=== PATIENT | male | born 1945 | race Caucasian/White ===

== ENCOUNTER 2016-09-29 17:01 | Inpatient (IN) | payer OTHER ==
--- NOTE | ~2016-09-29 | HP ---
History And Physical [id number] [place]. [address] NAME: LUIS M INFANTE : 47 STATUS : ADM IN [facility]#: [id number] AGE: 70 ADM/REG DATE : 09/29/16 MR#: [id number] REPORT SERV DATE: 09/30/16 DICTATED BY: STEVEN LAMBERT DATE: 09/29/16 REPORT STATUS : Draft TRANSCRIBED BY: LEONARDO DATE: 09/29/16 DATE OF ADMISSION: 09/29/2016 CHIEF COMPLAINT: Chest pain. 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 Last dose of chemotherapy was two days ago. The patient reported that after chemotherapy he was doing relatively fine though has some fatigue but there was no nausea, no vomiting. However, he reports some sudden onset of retrosternal chest pain, which was dull in nature, radiating to his jaw and left hand. He said the chest pain was 8/10 in intensity. There was associated shortness of breath. He said the chest pain lasted for about 30 minutes, subsequently relieved with rest, however, several hours later, the chest pain reoccurred, became more severe and intense. There was associated shortness of breath, palpitation, and diaphoresis. He denies any presyncopal or syncopal episode. He denies any cough. No chills. No bilateral lower extremity swelling, orthopnea, or PND. Given worsening chest pain, the patient decided to come to the ER for further evaluation. In the ER, the patient was found to have significantly elevated troponin with T-wave inversion in V4 and V5. A diagnosis of NSTEMI was made in the ER. Cardiology was consulted in the ER and recommended to start medical therapy for NSTEMI with heparin drip, aspirin, and beta becca. Given patient's other comorbidities including stage IV metastatic lung cancer, Cardiology team recommended the patient to be admitted to the Hospitalist Service for further evaluation. PAST MEDICAL HISTORY: 1. Adenocarcinoma of the lung diagnosed in 06/27/2016, currently stage IV, on chemotherapy. 2. Pneumothorax related to CT-guided biopsy. 3. COPD. 4. Hyperlipidemia. FAMILY HISTORY: Denies history of cancer, coronary artery disease, CVA, stroke, diabetes, or hypertension in the family. SOCIAL HISTORY: Denies smoking cigarettes, drinking alcohol, or illicit drug use. ALLERGIES: NO KNOWN DRUG ALLERGIES. MEDICATION: 1. Aspirin 81 mg p.o. daily. 2. Zocor 40 mg p.o. at bedtime. 3. Zanaflex 4 mg p.o. at bedtime. 4. Benadryl 25 mg p.o. at bedtime. 5. Folic acid 1 mg p.o. daily. History And Physical [address] [address] NAME: LUIS M INFANTE : 47 STATUS : ADM IN [facility]#: [id number] AGE: 70 ADM/REG DATE : 09/29/16 MR#: [id number] REPORT SERV DATE: 09/30/16 DICTATED BY: STEVEN LAMBERT DATE: 09/29/16 REPORT STATUS : Draft TRANSCRIBED BY: LEONARDO DATE: 09/29/16 6. Dexamethasone 4 mg p.o. at 7 a.m. and 3 p.m. daily. 7. Percocet 7.5/325 mg p.o. every eight hours. 8. Remeron 50 mg p.o. at bedtime. 9. Colace 100 mg p.o. daily. 10.Vitamin C 500 mg p.o. daily. 11.Paraplatin chemotherapy. 12.Palonosetron 1 IV with chemotherapy. 13.Cyanocobalamin 100 mcg daily. REVIEW OF SYSTEMS: A 12-point review of systems performed essentially negative. Positive findings as per HPI. PHYSICAL EXAMINATION: VITAL SIGNS: Blood pressure 124/84, temperature 97.2, pulse 75 beats per minute, and saturating 100% on room air. GENERAL: Not in any acute distress. Lying comfortably in bed. HEENT: Normocephalic, atraumatic. Extraocular muscles intact. Pupils equal, round, and reactive. NECK: Supple. No JVD. CHEST: Equal expansion, nontender. LUNGS: Bibasilar crackles and rhonchi. No wheezes. CARDIOVASCULAR: Regular rate and rhythm. S1 and S2. No murmurs. ABDOMEN: Bowel sounds normoactive. Nontender. No palpably enlarged organomegaly. LOWER EXTREMITIES: No pedal edema. . LABORATORY DATA: Chemistry: Sodium 136, potassium 4.2, chloride 105, bicarb 22, BUN 19, creatinine 0.86, GFR 88, calcium 7.4, glucose 167, magnesium 2.3, troponin 4.71. Total protein, albumin, direct bilirubin, indirect bilirubin, total bilirubin, alkaline phosphatase, ALT, and AST pending. Hematology: WBC 22.5, RBC 3.10, hemoglobin 9.8, hematocrit 29.3, MCV 94.5, and platelet 287. INR 1.1. PT 14.1. BNP 394.6. CT of the brain, [id number] atrial fib. There is no evidence of bone metastasis. There is no evidence of any parenchymal metastasis. Chest x-ray, PA and lateral. Impression, worsening interstitial pattern reminiscent of pulmonary fibrosis, although this may represent failure superimposed or an element of pulmonary fibrosis, lymphangitic spread of cancer should also be considered now because of history of lung cancer. In summary, this is a 70-year-old male with medical history significant for adenocarcinoma of the lung stage IV, who presented to the hospital with anginal pectoris found to have significant elevated troponin concerning for NSTEMI. NSTEMI. Currently, the patient will continue heparin drip, aspirin, beta becca, and nitroglycerin patch. Cardiology has been consulted and discussed with family. The patient will likely undergo a cardiac catheterization in the morning. History And Physical [address] [address] NAME: LUIS M INFANTE : 47 STATUS : ADM IN [facility]#: [id number] AGE: 70 ADM/REG DATE : 09/29/16 MR#: [id number] REPORT SERV DATE: 09/30/16 DICTATED BY: STEVEN LAMBERT DATE: 09/29/16 REPORT STATUS : Draft TRANSCRIBED BY: MODL DATE: 09/29/16 Leukocytosis. WBC of 20.3, likely related to dexamethasone. No evidence of systemic inflammatory response nor any evidence of obvious source of infection at this time. We will continue to monitor. Adenocarcinoma of the lung, stage IV, currently on chemotherapy. The patient's primary oncologist will be notified about patient's admission. Admission disposition, cardiac tele monitoring. Admission status, inpatient. Admission code status, full code per family wishes. DVT prophylaxis, contraindicated. The patient is currently anticoagulated with heparin drip. IOO/MODL Steven Lambert MD / [id number] CC: MD Vin Escobar MD
--- NOTE | ~2016-09-29 | DS ---
Discharge Summary [facility] [address] [place]. [address] NAME: LUIS M INFANTE : 47 STATUS : DIS IN PAT#: [id number] AGE: 70 ADM/REG DATE : 09/29/16 MR#: [id number] REPORT SERV DATE: 10/04/16 DICTATED BY: BRI ALVES II DATE: 10/03/16 REPORT STATUS : Draft TRANSCRIBED BY: MODL DATE: 10/03/16 ADMISSION DATE: 09/29/2016 DISCHARGE DATE: 10/03/2016 DISCHARGE DIAGNOSES: 1. Orh-SA-jtihcofdg myocardial infarction. 2. Multivessel coronary artery disease. 3. Stage IV lung cancer followed by Dr. Salazar. 4. Likely reactive leukocytosis. 5. Chronic obstructive pulmonary disease. 6. Non-sustained ventricular tachycardia. 7. Acute hypoxic respiratory failure. 8. History of hyperlipidemia. CONSULTS: 1. Dioni Dorsey M.D., and Heike Potts M.D., with Cardiology. 2. Joe Khan M.D., with Oncology. BRIEF HISTORY OF PRESENT ILLNESS: The patient is a 70-year-old male who presented to [facility] due to chest pain and subsequently found to have [id number] DE. For detailed history and physical examination, please see Dr. Jaimes's note from 09/29/2016. HOSPITAL COURSE: On admission, the patient had troponin of 4.12, BNP of 394. His EKG was fairly unremarkable with no ST changes and his chest pain resolved with nitro patch. He was placed on a heparin drip and Cardiology was consulted. An echocardiogram was done which showed preserved EF of 60%. No abnormalities. The patient subsequently underwent left heart catheterization which showed left main and three-vessel coronary artery disease. Left main with 50% stenosis. LAD with 90% long stenosis. Left circumflex with 50% stenosis in a totally occluded OM-2, RCA with 75% stenosis. Given the multivessel disease, the patient would need surgical correction. Dr. Khan was consulted for prognostic input and appropriateness for surgery. Given the patient's stage IV lung cancer and overall poor terminal operations supervisor prognosis, it was decided the patient was not a candidate for surgical intervention. His troponin trended down with medical management and his chest pain resolved. The patient was started on Plavix, metoprolol, simvastatin, and Imdur. At this point, the patient is otherwise stable. His chest x-ray showed worsening interstitial pattern reminiscent of pulmonary fibrosis although may represent failure, superimposed on an element of pulmonary fibrosis, lymphangitic spread of cancer should also be considered now because of history of lung cancer. The patient did qualify for home O2 but stable on 2 L nasal cannula. He had a brief 6 run beat of nonsustained ventricular tachycardia, but no further runs. On admission, he had a white count of 20 which trended down without antibiotics very quickly down to 9, likely reactive in the setting of acute NSTEMI. At this point, the patient is stable for discharge. DISCHARGE MEDICATIONS: 1. Aspirin 81 mg p.o. daily. 2. Colace 100 mg p.o. daily. Discharge Summary [address] [address] NAME: LUIS M INFANTE : 47 STATUS : DIS IN PAT#: [id number] AGE: 70 ADM/REG DATE : 09/29/16 MR#: [id number] REPORT SERV DATE: 10/04/16 DICTATED BY: BRI ALVES II DATE: 10/03/16 REPORT STATUS : Draft TRANSCRIBED BY: LEONARDO DATE: 10/03/16 3. Folic acid 1 mg p.o. daily. 4. Remeron 15 mg p.o. at bedtime. 5. Lopressor 12.5 mg p.o. b.i.d. 6. Simvastatin 40 mg p.o. at bedtime. 7. Zanaflex 4 mg p.o. at bedtime. 8. Benadryl p.r.n. 9. Decadron p.r.n. chemo. 10.Percocet p.r.n. pain. 11.Vitamin C 1000 mg p.o. daily. 12.Vitamin B12 IM q.30 days. 13.Imdur 30 mg ER p.o. daily. 14.Plavix 75 mg p.o. daily. DISCHARGE INSTRUCTIONS: The patient will follow with Dr. Salazar 10/[address] scan scheduled 10/17. GUICHO/LEONARDO Bri Alves II, MD / [id number] CC: MD Vin Lindo II, MD
--- NOTE | ~2016-09-29 | CN ---
Consultation Report [facility] [address] [place]. [address] NAME: LUIS M INFANTE : 47 STATUS : ADM IN PAT#: [id number] AGE: 70 ADM/REG DATE : 09/29/16 MR#: [id number] REPORT SERV DATE: 09/29/16 DICTATED BY: THI FONSECA DATE: 09/29/16 REPORT STATUS : Draft TRANSCRIBED BY: MODZoey DATE: 09/29/16 CARDIOLOGY CONSULTATION DATE OF CONSULTATION: REASON FOR REFERRAL: [id number]-[id number] [place]. HISTORY OF PRESENT ILLNESS: This is a pleasant 70 years old white gentleman with stage IV lung cancer, who is followed closely by Dr. Salazar. He is actively treated with chemotherapy reportedly fourth cycle now. He was diagnosed in 06/2016 and now has evidence of metastatic disease in the bones. He recently had an MRI of his chest on 09/25, which revealed extensive thoracic bone metastases. His MRI of the brain was negative for metastases in June and the CT of the brain in the emergency room does not show any metastatic disease. He has a history of hypertension, hyperlipidemia, but no history of smoking or diabetes. He lives independently. The patient reportedly has been complaining of poorly defined substernal chest burning sensation, both with exertion and at rest on and off over the last three to four days. He also has some worsening dyspnea on exertion and with activity. He has chronic dyspnea on exertion, but denies paroxysmal nocturnal dyspnea or resting shortness of breath. He denied lower extremity edema, syncope, or palpitations. He presented to the emergency room and was found to have elevated troponin up to 4.12, which has increased to 4.7 within a couple of hours. He got some ST-depression in anterolateral leads. He also has some leukocytosis 20,000, which may be due to the Decadron that he is using. I had a long discussion about situation with Dr. Queen. I was concerned about his metastatic disease and able to be the best approach to treat his acute coronary syndrome, but Dr. Queen talked to Dr. Salazar, who is the treating oncologist who reportedly agreed on coronary arteriogram and anticoagulation. CT of the brain was again negative for bleeding. The patient is currently comfortable. He was started on intravenous heparin and received aspirin. He denied prior history of chest pain. He wants to have everything done including a coronary arteriogram. Risks and benefits were explained to the patient. He wants to proceed. The rest of review of systems negative. PAST MEDICAL HISTORY: 1. Stage IV lung cancer diagnosed in 06/2016, currently undergoing chemotherapy. 2. Extensive thoracic bone metastatic disease by MRI in 09/2016. 3. Psoriasis. 4. Anxiety and depression. 5. Hypertension. 6. Hyperlipidemia. 7. Dyspnea on exertion, multifactorial in etiology. ALLERGIES: NO KNOWN DRUG ALLERGIES. Consultation Report [address] [address] NAME: LUIS M INFANTE : 47 STATUS : ADM IN [facility]#: [id number] AGE: 70 ADM/REG DATE : 09/29/16 MR#: [id number] REPORT SERV DATE: 09/29/16 DICTATED BY: THI FONSECA DATE: 09/29/16 REPORT STATUS : Draft TRANSCRIBED BY: LEONARDO DATE: 09/29/16 SOCIAL HISTORY: Patient denies smoking. He previously worked in the [employer]. He is walking without any support. He is . His daughter is on the side of his bed and has good family support. HOME MEDICATIONS: Aspirin 81 mg once a day, carboplatin, Xgeva injection, Decadron, Remeron 15 mg once a day, Percocet, and Zocor unknown dose once a day. PHYSICAL EXAMINATION: GEN - No acute distress. Elderly, chronically ill-looking gentleman. VITAL SIGNS: Blood pressure 155/56, heart rate 84 and regular. HEENT - Pupils reactive to light and accommodation. Moist mucosa membrane. NECK: No JVD. Normal carotid upstroke. No carotid bruits. LUNGS: Decreased breath sounds throughout, but with some occasional wheezing, but no crackles. COR: Normal S1, S2. No S3 or S4. No significant rub or murmurs. ABD: Distended, nontender. EXT: Lower extremity decreased pedal pulses bilaterally, but no edema. SKIN: Warm with normal turgor. MS - No kyphosis. NEURO/PSY - Alert and oriented. Nonfocal. Flat affect. DATA: Hemoglobin 9.8, leukocytosis 20,000, creatinine 0.8, nonfasting glucose 169, troponin 4.12 increasing to 4.7, brain natriuretic peptide 384. CT of the brain, no metastases. No bleeding. Electrocardiogram revealed normal sinus rhythm, 84 beats per minute with 0.[address]-depression in anterolateral leads. Nonspecific T-wave changes. Chest x-ray is pending. ASSESSMENT AND PLAN: 1. Acute coronary syndrome. 2. Stage IV lung cancer with metastases to the bone. As noted above, I had a long discussion with ER physician who discussed the situation with the treating oncologist, who agrees on anticoagulation and proceeding with coronary arteriogram. The patient and his family members agree with the risks and benefits. I expressed my skepticism that if there is a multivessel disease, we may consider treating medically while he may not be a good candidate for open heart surgery, but then we will proceed with coronary arteriogram tomorrow and possible PCI. We will also plan for echocardiogram. We will continue aspirin, statin. We will start beta becca, and plan for echocardiogram tomorrow also. Patient wants to be full code. MARTY/LEONARDO Thi Fonseca M.D. Consultation Report [address] [address] NAME: LUIS M INFANTE : 47 STATUS : ADM IN [facility]#: [id number] AGE: 70 ADM/REG DATE : 09/29/16 MR#: [id number] REPORT SERV DATE: 09/29/16 DICTATED BY: THI FONSECA DATE: 09/29/16 REPORT STATUS : Draft TRANSCRIBED BY: LEONARDO DATE: 09/29/16 / [id number] CC: MD Vin Escobar MD
[~2016-09-29 17:01] MED LIST: CLARIT10 PO; CYANO1000T PO; DSS PO; HALF81 PO; IRON PO; VITAMIN D1000 UNI1 PO; ZANAFLEX 4 MG TA4 MG PO; ZOCOR40 PO
[2016-09-29 17:05] LABS: CK-MB 13.1 NG/ML
[2016-09-29 17:11] LABS: CKMB INDEX (NOT ORD) 5.7
[2016-09-29 17:12] LABS: TROPONIN I 4.12 NG/ML (<0.05)
[2016-09-29 17:33] LABS: BASOPHILS 0 %; BASOPHILS ABSOLUTE 0.01 10/3/uL (0.0-0.16); EOSINOPHILS 0 %; HEMATOCRIT 29.3 % (40.0-51.0); HEMOGLOBIN 9.8 g/dL (13.6-17.8); IMMATURE GRANULOCYTES 0.6 %; IMMATURE GRANULOCYTES ABSOLUTE 0.13 10/3/uL (0.0-0.11); LYMPHOCYTES 6.1 %; LYMPHOCYTES ABSOLUTE 1.25 10/3/uL (0.67-4.30); MANUAL DIFF NO %; MEAN CORPUS HGB CONC 33.4 g/dL (32.0-36.0); MEAN CORPUSCULAR HEMOGLOB 31.6 pg (26.0-34.0); MEAN CORPUSCULAR VOLUME 94.5 fL (80-100); MEAN PLATELET VOLUME 9.6 fL (9.2-13.0); MONOCYTES 9.9 %; MONOCYTES ABSOLUTE 2.02 10/3/uL (0.21-1.20); NEUTROPHILS 83.4 %; NEUTROPHILS ABSOLUTE 17.06 10/3/uL (2.02-8.40); PLATELET COUNT 287 10/3/uL (150-400); RBC DISTRIBUTION WIDTH 16.2 % (12.0-16.0); WHITE BLOOD CELLS 20.5 10/3/uL (4.5-10.5)
[2016-09-29 17:40] LABS: INTERNATIONAL NORMAL RATI 1.1 UNITS (-); PARTIAL THROMBO TIME 24.2 SEC (22.5-37.2); PROTIME (NOT ORD) 14.1 SEC (12.0-14.5)
[2016-09-29 17:52] LABS: BUN (BLOOD UREA NITROGEN) 19 MG/DL (6-23); CHLORIDE, SERUM 105 MMOL/L (96-112); CO2 (CARBON DIOXIDE) 22 MMOL/L (24-34); CREATININE 0.86 MG/DL (0.70-1.30); GFR AFRICAN AMERICAN 103 ML/MIN (>=60); GFR NON AFRICAN AMERICAN 88 ML/MIN (>=60); POTASSIUM, SERUM 4.2 MMOL/L (3.5-5.3); SODIUM, SERUM 136 MMOL/L (135-148)
[2016-09-29 17:54] LABS: CALCIUM, SERUM 7.4 MG/DL (8.5-10.4); CHEST PAIN PROFILE TAT 0 Hrs 27 Mins; GLUCOSE, SERUM 167 MG/DL (60-99); TROPONIN I 4.74 NG/ML (<0.05)
[2016-09-29] MEDS ORDERED: HALF81 PO (18:43)
[2016-09-29] MEDS ORDERED: ZOCOR40 PO (18:43)
[2016-09-29] MEDS ORDERED: ZANAFLEX 4 MG TA4 MG PO (18:44)
[2016-09-29] MEDS ORDERED: BEN25 PO (18:45)
[2016-09-29] MEDS ORDERED: FOLIC PO (18:46)
[2016-09-29] MEDS ORDERED: DEX4 PO (18:59)
[2016-09-29] MEDS ORDERED: PERCOCET 7.5/321 TAB PO (19:01)
[2016-09-29] MEDS ORDERED: REM15 PO (19:02)
[2016-09-29] MEDS ORDERED: VITC500 PO (19:03)
[2016-09-29] MEDS ORDERED: DSS PO (19:03)
[2016-09-29] MEDS ORDERED: ALIMTA (19:06)
[2016-09-29] MEDS ORDERED: XGEVA120 MG/1.7 SC (19:07)
[2016-09-29] MEDS ORDERED: PARAPLATIN (19:07)
[2016-09-29] MEDS ORDERED: ALOXI IV (19:08)
[2016-09-29] MEDS ORDERED: B121000P IM (19:09)
[2016-09-29 22:52] LABS: ALBUMIN 3.2 G/DL (3.5-5.0); ALKALINE PHOSPHATASE 90 U/L (45-117); DIRECT BILIRUBIN < 0.1 MG/DL (0.0-0.4); FREE T4 0.87 NG/DL (0.76-1.46); INDIRECT BILIRUBIN(NOT ORDER) 0.3 MG/DL (0.1-0.9); SGOT(AST) 36 U/L (5-40); SGPT(ALT) 22 U/L (5-65); TOTAL BILIRUBIN 0.4 MG/DL (0-1.2); ULTRASENSITIVE TSH 0.662 MCIU/ML (0.358-3.740)
[2016-09-30 03:34] LABS: BASOPHILS 0.1 %; BASOPHILS ABSOLUTE 0.01 10/3/uL (0.0-0.16); EOSINOPHILS 0.1 %; EOSINOPHILS ABSOLUTE 0.01 10/3/uL (0.0-0.53); HEMATOCRIT 27.3 % (40.0-51.0); HEMOGLOBIN 9.1 g/dL (13.6-17.8); IMMATURE GRANULOCYTES 0.4 %; IMMATURE GRANULOCYTES ABSOLUTE 0.08 10/3/uL (0.0-0.11); INTERNATIONAL NORMAL RATI 1.2 UNITS (-); LYMPHOCYTES 12.9 %; LYMPHOCYTES ABSOLUTE 2.32 10/3/uL (0.67-4.30); MEAN CORPUS HGB CONC 33.3 g/dL (32.0-36.0); MEAN CORPUSCULAR HEMOGLOB 31.8 pg (26.0-34.0); MEAN CORPUSCULAR VOLUME 95.5 fL (80-100); MEAN PLATELET VOLUME 9.5 fL (9.2-13.0); MONOCYTES 7.7 %; MONOCYTES ABSOLUTE 1.39 10/3/uL (0.21-1.20); NEUTROPHILS 78.8 %; NEUTROPHILS ABSOLUTE 14.19 10/3/uL (2.02-8.40); PARTIAL THROMBO TIME 36.5 SEC (22.5-37.2); PLATELET COUNT 278 10/3/uL (150-400); PROTIME (NOT ORD) 14.7 SEC (12.0-14.5); RBC DISTRIBUTION WIDTH 16.1 % (12.0-16.0); RED CELL COUNT 2.86 10/6/uL (4.7-6.1)
[2016-09-30 03:36] LABS: MANUAL DIFF NO %
[2016-09-30 03:43] LABS: ALBUMIN 2.8 G/DL (3.5-5.0); BUN (BLOOD UREA NITROGEN) 21 MG/DL (6-23); CHLORIDE, SERUM 108 MMOL/L (96-112); CHOL/HDL RATIO(NOT ORDER) 2.5 (0-5); CHOLESTEROL 116 MG/DL (< 200); CO2 (CARBON DIOXIDE) 26 MMOL/L (24-34); GFR AFRICAN AMERICAN 101 ML/MIN (>=60); GFR NON AFRICAN AMERICAN 87 ML/MIN (>=60); GLUCOSE, SERUM 136 MG/DL (60-99); HDL CHOLESTEROL 46 MG/DL (> 39); LDL CHOLESTEROL 35 MG/DL (< 130); NON-HDL CHOLESTEROL 70 MG/DL (< 160); PHOSPHORUS, SERUM 2.7 MG/DL (2.5-4.5); POTASSIUM, SERUM 4.2 MMOL/L (3.5-5.3); SODIUM, SERUM 141 MMOL/L (135-148); TRIGLYCERIDE 178 MG/DL (< 150)
[2016-09-30 03:44] LABS: TROPONIN I 4.62 NG/ML (<0.05)
[2016-09-30 03:53] LABS: CALCIUM, SERUM 6.9 MG/DL (8.5-10.4)
[2016-10-01 05:16] LABS: BASOPHILS 0.1 %; BASOPHILS ABSOLUTE 0.01 10/3/uL (0.0-0.16); EOSINOPHILS ABSOLUTE 0.29 10/3/uL (0.0-0.53); HEMATOCRIT 26.4 % (40.0-51.0); HEMOGLOBIN 8.8 g/dL (13.6-17.8); IMMATURE GRANULOCYTES 0.2 %; IMMATURE GRANULOCYTES ABSOLUTE 0.02 10/3/uL (0.0-0.11); LYMPHOCYTES 20.2 %; LYMPHOCYTES ABSOLUTE 1.97 10/3/uL (0.67-4.30); MEAN CORPUS HGB CONC 33.3 g/dL (32.0-36.0); MEAN CORPUSCULAR HEMOGLOB 31.4 pg (26.0-34.0); MEAN CORPUSCULAR VOLUME 94.3 fL (80-100); MEAN PLATELET VOLUME 9.4 fL (9.2-13.0); MONOCYTES 2.7 %; MONOCYTES ABSOLUTE 0.26 10/3/uL (0.21-1.20); NEUTROPHILS 73.8 %; NEUTROPHILS ABSOLUTE 7.22 10/3/uL (2.02-8.40); PLATELET COUNT 259 10/3/uL (150-400); RBC DISTRIBUTION WIDTH 16.1 % (12.0-16.0)
[2016-10-01 05:22] LABS: MANUAL DIFF NO %; WHITE BLOOD CELLS 9.8 10/3/uL (4.5-10.5)
[2016-10-01 05:38] LABS: CHLORIDE, SERUM 104 MMOL/L (96-112); CO2 (CARBON DIOXIDE) 25 MMOL/L (24-34); CREATININE 0.79 MG/DL (0.70-1.30); GFR AFRICAN AMERICAN 106 ML/MIN (>=60); GFR NON AFRICAN AMERICAN 92 ML/MIN (>=60); POTASSIUM, SERUM 4.6 MMOL/L (3.5-5.3); SODIUM, SERUM 138 MMOL/L (135-148)
[2016-10-01 05:40] LABS: BUN (BLOOD UREA NITROGEN) 16 MG/DL (6-23); CALCIUM, SERUM 6.5 MG/DL (8.5-10.4); GLUCOSE, SERUM 91 MG/DL (60-99); TROPONIN I 3.08 NG/ML (<0.05)
[2016-10-03] MEDS ORDERED: IMDUR30 PO (12:50)
[2016-10-03] MEDS ORDERED: PLAVIX PO (12:50)
[2016-10-03] MEDS ORDERED: LOP25 PO (13:23)
[2017-01-26] MEDS ORDERED: VITAMIN D31000 UNIT PO (13:57)
[2017-01-26] MEDS ORDERED: HALF81 PO (13:57)
[2017-01-26] MEDS ORDERED: FOLIC PO (13:58)
[2017-01-26] MEDS ORDERED: B12250T PO (13:58)
[2017-01-26] MEDS ORDERED: D.O.S.100 MG PO (13:58)
[2017-01-26] MEDS ORDERED: IMDUR30 PO (13:59)
[2017-01-26] MEDS ORDERED: CLARIT10 PO (14:00)
[2017-01-26] MEDS ORDERED: PLAVIX PO (14:00)
[2017-01-26] MEDS ORDERED: P10 PO (14:00)
[2017-01-26] MEDS ORDERED: ZANAFLEX 4 MG TA4 MG PO (14:01)
[2017-01-26] MEDS ORDERED: REM15 PO (14:01)
[2017-01-26] MEDS ORDERED: ZOCOR40 PO (14:01)
[2017-01-26] MEDS ORDERED: NORCO1 TA2 PO (14:03)
[2017-01-26] MEDS ORDERED: VITC500 PO (14:03)
[2017-01-26] MEDS ORDERED: DELSYM30 MG/5 ML PO (14:04)
[2017-01-26] MEDS ORDERED: CALCIUM PO (14:11)
[2017-01-26] MEDS ORDERED: LOP25 PO (14:13)
[2017-01-26] MEDS ORDERED: SYMBICORT 160/41 INH INH (14:13)
[2017-01-26] MEDS ORDERED: SPIRIVA RESPIMAT INH (14:14)
[2017-01-26] MEDS ORDERED: ALBUTEROL NEB INH (14:15)
[2017-01-26] MEDS ORDERED: DIPHENCR TOP (14:17)
[2017-01-26] MEDS ORDERED: T PO (14:17)
[2017-01-26] MEDS ORDERED: TRAMADOL (14:18)
[2017-01-26] MEDS ORDERED: [UNRECOGNIZED DRUG - SUPPLY] TOP (14:18)
[2017-01-26] MEDS ORDERED: BEN25 PO (14:19)
[2017-01-26] MEDS ORDERED: ATV.5 PO (14:19)
[2017-01-26] MEDS ORDERED: ZYRTEC ALLGY10 MG PO (14:19)
== END 2016-10-03 16:41 | disposition home or self-care (01) | DRG 281 ==
LOC: ER 17:01 → 5NO 20:00
PROVIDERS: Hospitalist; Internal Medicine; Internal Medicine Cardiovascular Disease; Internal Medicine Hematology & Oncology
PROC: 4A023N7 Measurement of Cardiac Sampling and Pressure, Left Heart, Percutaneous Approach (ICD-10-PCS; principal; 2016-09-30)
PROC: B2111ZZ Fluoroscopy of Multiple Coronary Arteries using Low Osmolar Contrast (ICD-10-PCS; 2016-09-30)
PROC: B2151ZZ Fluoroscopy of Left Heart using Low Osmolar Contrast (ICD-10-PCS; 2016-09-30)
DX: I21.4 Non-ST elevation (NSTEMI) myocardial infarction (principal); C34.91 Malignant neoplasm of unspecified part of right bronchus or lung; I47.2 Ventricular tachycardia; C78.7 Secondary malignant neoplasm of liver and intrahepatic bile duct; C79.51 Secondary malignant neoplasm of bone; J44.9 Chronic obstructive pulmonary disease, unspecified; E78.5 Hyperlipidemia, unspecified; L40.9 Psoriasis, unspecified; F41.8 Other specified anxiety disorders; Z79.82 Long term (current) use of aspirin
CPT/HCPCS: 70450; 71020; 80048; 80061; 80069; 80076; 82330; 82550; 82553; 83735; 83880; 84439; 84443; 84484; 85025; 85610; 85730; 93005; 93458; 99152; 99285; A9270-GY; C1769; C1887; C1894; C8929; J2250; J3010; Q9957; Q9967